=== PATIENT | female | born 1950 | race Caucasian/White ===

== ENCOUNTER 2021-02-14 20:34 | Inpatient (IN) | payer MEDICARE, MEDICAID ==
[~2021-02-14] VITALS: Ht 152.4 cm; Wt 66.2 kg
[2021-02-14 21:07] LABS: BG BASE EXCESS -0.3 mmol/L (-2.0-2.0); BG CARBOXYHEMOGLOBIN 0.3 % (0.5-1.5); BG DEOXYHEMOGLOBIN 1.7 % (0.0-5.0); BG FRACTION INSPIRED OXYGEN 100; BG HCO3 ACT 25.4 mmol/L (22.0-26.0); BG METHEMOGLOBIN 0.3 % (0.0-1.5); BG OXYGEN SATURATION 98.3 % (92.0-98.5); BG OXYHEMOGLOBIN 97.7 % (94.0-97.0); BG PCO2 46.4 mmHg (35.0-45.0); BG PH 7.357 (7.350-7.450); BG PO2 150.4 mmHg (75.0-100.0); BG SAMPLE SITE RIGHT RADIAL; BG TOTAL HEMOGLOBIN 11.3 g/dL (12.0-18.0); BG VENT MODE MASK - BIPAP
[2021-02-14] MEDS ORDERED: METOPROLOL SUCCINATE 50MG ER TABLET PO STA (21:24)
[2021-02-14 21:30] LABS: CHLORIDE 100 mEq/L (98-107)
[2021-02-14] MEDS ORDERED: LISINOPRIL 40MG TABLET PO ONE (21:30)
[2021-02-14] MEDS ORDERED: HYDRALAZINE 20MG/ML VIAL IV ONE (21:30)
[2021-02-14 21:38] LABS: BASOPHILS % 1.1 % (0.0-2.0); EOSINOPHILS % 5.1 % (0.0-5.0); HEMATOCRIT. 32.5 % (36.0-48.0); HEMOGLOBIN. 10.5 g/dL (12.0-16.0); MEAN CORPUSCULAR HEMOGLOBIN 30.3 pg (28.0-32.0); MEAN CORPUSCULAR VOLUME 93.1 fL (81.0-99.0); MEAN PLATELET VOLUME 7.5 fl (7.4-10.4); MONOCYTES % 6.5 % (2.0-8.0); NEUTROPHILS % 65.3 % (40.0-76.0); PLATELET 315 x1000/uL (130-400); RED BLOOD CELL COUNT 3.49 mill/uL (4.2-5.4); RED CELL DISTRIBUTION WIDTH 16.3 % (11.6-14.6)
[2021-02-14] MEDS ORDERED: VANCOMYCIN 1 G PREMIX 200 ML IV NR (21:53)
[2021-02-14] MEDS ORDERED: CEFEPIME 500 MG in DEXTROSE 5% WATER 50 ML IV SCH (22:00)
[2021-02-14] MEDS ORDERED: CEFEPIME 1,000 MG in DEXTROSE 5% WATER 50 ML IV SCH (22:15)
[2021-02-14] MEDS ORDERED: IPRATROPIUM/ALBUTEROL 0.5-3(2.5)MG/3ML NEB NEB PRN (22:45)
[2021-02-14] MEDS ORDERED: HYDRALAZINE 20MG/ML VIAL IV PRN (22:45)
[2021-02-14] MEDS ORDERED: DIPHENHYDRAMINE 50MG/ML VIAL IV PRN (22:45)
[2021-02-14] MEDS ORDERED: ONDANSETRON HCL 4MG/2ML INJ IV PRN (22:45)
[2021-02-14] MEDS ORDERED: ACETAMINOPHEN 325MG TABLET PO PRN ×2 (22:45)
[2021-02-14] MEDS ORDERED: DEXTROSE 50% WATER 50ML SYRINGE IV PRN (22:45)
[2021-02-15] MEDS: SODIUM CHLORIDE 0.9% INJ 3ML FLUSH IVF SCH ×3 (05:55→22:02)
[2021-02-15] MEDS: HYDRALAZINE HCL 50MG TABLET PO SCH ×3 (06:03→22:01)
[2021-02-15] MEDS: BLOOD SUGAR DIAGNOSTIC STRIP TEST SCH ×4 (06:05→21:57)
[2021-02-15] MEDS: INSULIN LISPRO 100 UNITS/ML SUBCUT SCH ×4 (06:05→21:00)
[2021-02-15] MEDS: CARVEDILOL 12.5MG TABLET PO SCH ×2 (09:00→22:01)
[2021-02-15] MEDS: AMLODIPINE 5MG TABLET PO SCH (09:00)
[2021-02-15 12:46] LABS: HEPATITIS B SURFACE ANTIGEN NEGATIVE
[2021-02-15 14:00] VITALS: BP 175/57
[2021-02-15 16:00] VITALS: BP 185/59
[2021-02-15] MEDS: CLONIDINE 0.1MG TABLET PO PRN (16:14)
[2021-02-15] MEDS ORDERED: SEVE800T8 PO (17:47)
[2021-02-15] MEDS ORDERED: METO25TA6 PO (17:47)
[2021-02-15] MEDS ORDERED: GABA-532 PO (17:47)
[2021-02-15] MEDS ORDERED: OMEP20CA14 PO (17:47)
[2021-02-15] MEDS ORDERED: CALC667T6 PO (17:47)
[2021-02-15] MEDS ORDERED: ATOR20TA PO (17:47)
[2021-02-15] MEDS ORDERED: NIFE-32 PO (17:47)
[2021-02-15] MEDS ORDERED: CELE-84 PO (17:47)
[2021-02-15 20:00] VITALS: BP 167/61
[2021-02-15] MEDS: ATORVASTATIN CALCIUM 20MG TABLET PO SCH (22:01)
[2021-02-16 00:34] VITALS: BP 164/55
[2021-02-16 04:00] VITALS: BP 160/50
[2021-02-16] MEDS: HYDRALAZINE HCL 50MG TABLET PO SCH ×3 (05:27→22:00)
[2021-02-16] MEDS: SODIUM CHLORIDE 0.9% INJ 3ML FLUSH IVF SCH ×3 (05:28→22:03)
[2021-02-16] MEDS: BLOOD SUGAR DIAGNOSTIC STRIP TEST SCH ×4 (07:32→22:00)
[2021-02-16] MEDS: INSULIN LISPRO 100 UNITS/ML SUBCUT SCH ×4 (07:32→22:00)
[2021-02-16 08:00] VITALS: BP 174/53
[2021-02-16] MEDS: CLONIDINE 0.1MG TABLET PO PRN (08:34)
[2021-02-16] MEDS: AMLODIPINE 5MG TABLET PO SCH (08:34)
[2021-02-16] MEDS: CARVEDILOL 12.5MG TABLET PO SCH ×2 (08:34→20:40)
[2021-02-16 12:00] VITALS: BP 198/62
[2021-02-16] MEDS ORDERED: HYDRALAZINE 20MG/ML VIAL IV SCH (14:15)
[2021-02-16 16:00] VITALS: BP 174/52
[2021-02-16] MEDS ORDERED: HYDRALAZINE HCL 50MG TABLET PO NR (19:00)
[2021-02-16 20:00] VITALS: BP 187/51
[2021-02-16] MEDS ORDERED: LABETALOL HCL VIAL 20 MG/4 ML VIAL IV NR (20:00)
[2021-02-16] MEDS: ATORVASTATIN CALCIUM 20MG TABLET PO SCH (20:36)
[2021-02-16 22:54] LABS: BASOPHILS % 1.3 % (0.0-2.0); EOSINOPHILS % 7.3 % (0.0-5.0); HEMATOCRIT. 25.1 % (36.0-48.0); HEMOGLOBIN. 8.1 g/dL (12.0-16.0); LYMPHOCYTES % 17.3 % (20.0-50.0); MEAN CORPUSCULAR HEMOGLOBIN 29.5 pg (28.0-32.0); MEAN CORPUSCULAR VOLUME 91.7 fL (81.0-99.0); MEAN PLATELET VOLUME 7.1 fl (7.4-10.4); MONOCYTES % 9.7 % (2.0-8.0); NEUTROPHILS % 64.4 % (40.0-76.0); PLATELET 164 x1000/uL (130-400); RED BLOOD CELL COUNT 2.74 mill/uL (4.2-5.4)
[2021-02-17 00:40] VITALS: BP 145/64
[2021-02-17] MEDS: SODIUM CHLORIDE 0.9% INJ 3ML FLUSH IVF SCH ×3 (06:56→21:58)
[2021-02-17] MEDS: CLONIDINE 0.1MG TABLET PO PRN ×2 (06:57→23:57)
[2021-02-17] MEDS: HYDRALAZINE HCL 50MG TABLET PO SCH ×3 (06:57→21:58)
[2021-02-17] MEDS: BLOOD SUGAR DIAGNOSTIC STRIP TEST SCH ×4 (07:07→21:10)
[2021-02-17 07:13] LABS: BASOPHILS % 1.3 % (0.0-2.0); EOSINOPHILS % 8.6 % (0.0-5.0); HEMATOCRIT. 24.9 % (36.0-48.0); HEMOGLOBIN. 8.3 g/dL (12.0-16.0); LYMPHOCYTES % 19.1 % (20.0-50.0); MEAN CORPUSCULAR HEMOGLOBIN 30.4 pg (28.0-32.0); MEAN CORPUSCULAR VOLUME 91.7 fL (81.0-99.0); MEAN PLATELET VOLUME 7.8 fl (7.4-10.4); MONOCYTES % 9.1 % (2.0-8.0); NEUTROPHILS % 61.9 % (40.0-76.0); PLATELET 167 x1000/uL (130-400); RED BLOOD CELL COUNT 2.72 mill/uL (4.2-5.4); RED CELL DISTRIBUTION WIDTH 15.8 % (11.6-14.6)
[2021-02-17] MEDS: INSULIN LISPRO 100 UNITS/ML SUBCUT SCH ×4 (07:50→21:00)
[2021-02-17 08:00] VITALS: BP 156/64
[2021-02-17] MEDS: CARVEDILOL 12.5MG TABLET PO SCH ×2 (08:41→21:58)
[2021-02-17] MEDS: AMLODIPINE 5MG TABLET PO SCH (08:41)
[2021-02-17 12:00] VITALS: BP 160/49
[2021-02-17] MEDS ORDERED: HYDR-4135 PO (13:09)
[2021-02-17] MEDS ORDERED: AMLO5TAB88 PO (13:09)
[2021-02-17] MEDS ORDERED: ATOR20TA PO (13:09)
[2021-02-17] MEDS ORDERED: COR12 PO (13:09)
[2021-02-17 15:53] VITALS: BP 129/51
[2021-02-17 20:00] VITALS: BP 174/60
[2021-02-17] MEDS: ATORVASTATIN CALCIUM 20MG TABLET PO SCH (21:58)
[2021-02-17 23:54] VITALS: BP 170/54
[2021-02-18] VITALS (7 sets, daily range): BP systolic 129–175; BP diastolic 40–64
[2021-02-18] MEDS: SODIUM CHLORIDE 0.9% INJ 3ML FLUSH IVF SCH ×2 (06:00→14:00)
[2021-02-18 06:08] LABS: BASOPHILS % 1.4 % (0.0-2.0); EOSINOPHILS % 8.2 % (0.0-5.0); HEMATOCRIT. 24.4 % (36.0-48.0); LYMPHOCYTES % 18.2 % (20.0-50.0); MEAN CORPUSCULAR HEMOGLOBIN 30.4 pg (28.0-32.0); MEAN CORPUSCULAR VOLUME 92.6 fL (81.0-99.0); MONOCYTES % 10.5 % (2.0-8.0); NEUTROPHILS % 61.7 % (40.0-76.0); PLATELET 150 x1000/uL (130-400); RED BLOOD CELL COUNT 2.63 mill/uL (4.2-5.4); RED CELL DISTRIBUTION WIDTH 15.7 % (11.6-14.6)
[2021-02-18] MEDS: BLOOD SUGAR DIAGNOSTIC STRIP TEST SCH ×3 (06:57→17:27)
[2021-02-18] MEDS: HYDRALAZINE HCL 50MG TABLET PO SCH ×2 (06:58→15:01)
[2021-02-18] MEDS: INSULIN LISPRO 100 UNITS/ML SUBCUT SCH ×3 (07:18→18:54)
[2021-02-18] MEDS: CARVEDILOL 12.5MG TABLET PO SCH (08:36)
[2021-02-18] MEDS: AMLODIPINE 5MG TABLET PO SCH (08:36)
[2021-02-18] MEDS: CLONIDINE 0.1MG TABLET PO PRN ×2 (08:36→15:01)
[2021-02-18] MEDS ORDERED: AMLODIPINE 10MG TABLET PO NR (17:15)
== END 2021-02-18 20:45 | disposition home or self-care (01) | DRG 189 ==
LOC: ER 20:34 → MICUSO 21:30 → EDBEDREQSVC 21:33 → EDBEDREQTM 21:33 → EDBEDREQ 21:33 → 6WST 02-15 14:37
PROVIDERS: ADMIT Internal Medicine; ATTEND Internal Medicine
PROC: 5A09357 Assistance with Respiratory Ventilation, Less than 24 Consecutive Hours, Continuous Positive Airway Pressure (ICD-10-PCS; principal; 2021-02-14)
PROC: 5A1D70Z Performance of Urinary Filtration, Intermittent, Less than 6 Hours Per Day (ICD-10-PCS; 2021-02-15)
PROC: 5A1D70Z Performance of Urinary Filtration, Intermittent, Less than 6 Hours Per Day (ICD-10-PCS; 2021-02-17)
DX: J96.01 Acute respiratory failure with hypoxia (principal); N18.6 End stage renal disease; I13.2 Hypertensive heart and chronic kidney disease with heart failure and with stage 5 chronic kidney disease, or end stage renal disease; E11.22 Type 2 diabetes mellitus with diabetic chronic kidney disease; D63.8 Anemia in other chronic diseases classified elsewhere; Z20.822 Contact with and (suspected) exposure to COVID-19; Z99.2 Dependence on renal dialysis; Z79.899 Other long term (current) drug therapy; R91.8 Other nonspecific abnormal finding of lung field; I50.9 Heart failure, unspecified
CPT/HCPCS: 36415; 36600; 71045; 80048; 80053; 82375; 82805; 82962; 83880; 84484; 85025; 86705; 86709; 86803; 87340; 87426; 93005; 94660; 99285; J0360; J0692; J1815; J2405; J3370; J3490; J7060; U0003; U0005